=== PATIENT | male | born 1960 | race African-American/Black ===

== ENCOUNTER 2024-09-04 13:29 | Emergency (ER) | payer BC, OTHER ==
[2024-09-04] MEDS ORDERED: ACETAMINOPHEN 500 MG TABLET (FP) ONE (15:03)
[2024-09-04] MEDS: ACETAMINOPHEN 500 MG TABLET (FP) PO ONE (15:04)
[2024-09-04 15:11] LABS: PH,URINE 5.5 (5.0-8.0); URINE APPEARANCE CLEAR; URINE BILIRUBIN NEGATIVE (NEGATIVE); URINE COLOR DK YELLOW; URINE GLUCOSE (UA) NEGATIVE (NEGATIVE); URINE KETONE TRACE (NEGATIVE); URINE LEUK ESTERASE NEGATIVE (NEGATIVE); URINE NITRITE NEGATIVE (NEGATIVE); URINE PROTEIN TRACE (NEGATIVE)
[2024-09-04] MEDS ORDERED: METHOCARBAMOL 500 MG TABLET ONE (15:28)
[2024-09-04] MEDS: METHOCARBAMOL 500 MG TABLET PO ONE (15:29)
[2024-09-04 16:10] VITALS: BP 125/75; PULSE 82; RESP 18; TEMP 98; BMI 24.2
== END 2024-09-04 18:06 | disposition home or self-care (01) ==
LOC: JER 13:29 → JERFT 13:29
DX: R51.9 Headache, unspecified (principal); M54.2 Cervicalgia; M54.50 Low back pain, unspecified; V43.02XA Car driver injured in collision with other type car in nontraffic accident, initial encounter; Y92.481 Parking lot as the place of occurrence of the external cause
CPT/HCPCS: 70450-TC; 72100-TC-FY; 72125-TC; 81003; 87086; 99285-25